=== PATIENT | female | born 1950 | race Caucasian/White ===

== ENCOUNTER 2024-09-14 18:23 | Emergency (ER) | payer MEDICARE, OTHER, SELFPAY ==
[2024-09-14] VITALS (8 sets, daily range): BP systolic 189–207; BP diastolic 93–148; PULSE 79–85; RESP 16–22; TEMP 36.7–36.8; O2SAT 91–97; BMI 30.7
--- NOTE | 2024-09-14 18:30 | EKG12_ITS ---
Test Reason : DYSRHYTHMIA Blood Pressure : */* mmHG Vent. Rate : 78 BPM Atrial Rate : 78 BPM P-R Int : 204 ms QRS Dur : 80 ms QT Int : 386 ms P-R-T Axes : 28 -41 23 degrees QTcB Int : 440 ms Normal sinus rhythm Left axis deviation Inferior infarct , age undetermined Abnormal ECG Confirmed by MIS NAIK, RABIA ([id number]), scientific editor ARIELLE LIVINGSTON ([id number]) on 09/15/2024 10:07:54 AM Referred By: Jose Cardenas Confirmed By: RABIA ABEBE MD
--- NOTE | 2024-09-14 18:31 | RAD_ITS ---
PROCEDURE: ELBOW 2 VIEWS 09/14/2024 REASON FOR EXAM: INJURY/PAIN TECHNIQUE: ELBOW 2 VIEWS COMPARISON: None FINDINGS: See below. RAD/Elbow 2 Views IMPRESSION: There is dislocation of the elbow joint with volar dislocation of the radius an d ulna relative to the humerus. There is destruction of the ulnar aspect of the distal humerus, with calcific fragments throughout the elbow joint. Soft tissue swelling and likely joint effusion. Reading Location: [facility]
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
--- NOTE | 2024-09-14 18:40 | RAD_ITS ---
PROCEDURE: KNEE 1 OR 2 VIEWS 09/14/2024 REASON FOR EXAM: INJURY/PAIN TECHNIQUE: KNEE 1 OR 2 VIEWS COMPARISON: None FINDINGS: Postoperative changes from knee arthroplasty with cerclage wires around the distal femur. No hardware fracture or significant perihardware lucency. Cortical thickening and osseous remodeling of the distal femoral shaft, predominantly laterally, without discrete fracture lucency. Probable knee joint effusion. Vascular calcifications and surgical vitaly in the soft tissues. RAD/Knee 1 or 2 Views IMPRESSION: Postoperative changes of the right knee, without definite hardware complication or periprosthetic fracture. Consider CT if concern persists. Reading Location: [facility]
[2024-09-14 18:45] LABS: Hematocrit 36.3 % (37-47); Hemoglobin 11.5 g/dL (12.0-15.0); Immature Granulocytes Count 0.030 X10^3/uL (0.0-0.0); Mean Corp Hgb Conc 31.7 g/dL (32-36); Mean Corpuscular Volume 78.1 fL (81-99); Mean Platelet Vol. 8.6 fl (6.2-12.0); NRBC Flagged by Analyzer 0 % (0-5); Platelet Count 157 K/mm3 (150-450); RBC Distribution Width CV 15.6 % (11.6-14.6); RBC Distribution Width SD 44.0 fl (35.1-43.9); Red Blood Count 4.65 M/mm3 (4.2-5.4); White Blood Count 4.9 K/mm3 (4.4-11.0)
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
[2024-09-14 19:23] LABS: Partial Thromboplast Time 24.2 Seconds (24.1-36.2); Prothrombin Time (Protime)PT. 13.6 SECONDS (11.7-14.9)
[2024-09-14 19:33] LABS: Anion Gap 11 (5-15); BUN 22 mg/dL (4-19); BUN/Creat Ratio 17.4 RATIO (10-20); Calcium,Total 9.3 mg/dL (7.6-11.0); Carbon Dioxide 24.3 mmol/L (21.0-32.0); Chloride 105 mmol/L (98-108); Estimated Creatinine Clearance 40.06 ml/min (50-250); Glucose 146 mg/dL (70-99); Potassium 3.8 mmol/L (3.3-5.1)
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
== END 2024-09-14 22:30 | disposition home or self-care (01) ==
PROVIDERS: Emergency Provider Emergency Medicine; Referring Provider Emergency Medicine; Visit Provider Emergency Medicine
DX: S53.134A Medial dislocation of right ulnohumeral joint, initial encounter (principal); S00.03XA Contusion of scalp, initial encounter; S16.1XXA Strain of muscle, fascia and tendon at neck level, initial encounter; S29.9XXA Unspecified injury of thorax, initial encounter; S06.0X1A Concussion with loss of consciousness of 30 minutes or less, initial encounter; R03.0 Elevated blood-pressure reading, without diagnosis of hypertension; S39.91XA Unspecified injury of abdomen, initial encounter; V49.50XA Passenger injured in collision with unspecified motor vehicles in traffic accident, initial encounter; M25.561 Pain in right knee; S42.401A Unspecified fracture of lower end of right humerus, initial encounter for closed fracture
CPT/HCPCS: 24600; 70450; 71250; 72125; 73070; 73560; 74176; 80048; 85025; 85610; 85730; 93005; 96374; 96375; 96376; 99285; A4216; J2405